=== PATIENT | female | born 1950 | race Caucasian/White ===

== ENCOUNTER 2021-10-12 08:06 | Day surgery (SDC) | payer MEDICARE, OTHER, SELFPAY ==
[2021-10-12 08:30] VITALS: BP 132/78; PULSE 82; RESP 16; TEMP 36.5; O2SAT 98; BMI 26.8
[2021-10-12] MEDS: Lactated Ringers 1,000 ML 15 ML IV (08:30)
--- NOTE | 2021-10-12 09:06 | HP.PCM_ITS ---
HPI - General HPI Narrative QUENTIN GOMEZ, is a 70 F who presents for surveillance colonoscopy. Her last colonoscopy was 5 years ago. She does think that there were polyps present. She does not have any abdominal pain or blood in her stool. [facility] Medical History (Updated 10/12/21 @ 09:[address] Justin Chan MD) Anxiety Back problem Breast lump Cardiology follow-up encounter Depression GERD (gastroesophageal reflux disease) Headache, migraine History of echocardiogram History of stress test Hypertension Non-smoker Osteoporosis Post-menopausal Wears glasses Wears hearing aid Home Medications atenolol 25 mg tablet 25 mg PO DAILY 08/14/21 [History Last Taken 10/12/21 05:10] calcium carbonate 600 mg calcium (1,500 mg) tablet 600 mg PO BID 08/14/21 [History Last Taken Unknown] cholecalciferol (vitamin D3) 50 mcg (2,000 unit) capsule 50 mcg PO DAILY 08/14/21 [History Last Taken Unknown] mirtazapine 30 mg tablet 30 mg PO DAILY 08/14/21 [History Last Taken Unknown] venlafaxine 150 mg capsule,extended release 24 hr 150 mg PO DAILY 08/14/21 [History Last Taken Unknown] Allergy/AdvReac Type Severity Reaction Status Date / Time clindamycin Allergy Intermediate rash Verified 10/11/21 09:42 Family History (Updated 08/14/21 @ 16:38 by Olesya Hogan) Father Anxiety and depression Hypertension Aunt Colon cancer Melanoma Mother Hypertension Daughter Melanoma Other Blood clot in vein Breast cancer Osteoporosis Surgical History (Updated 10/11/21 @ 09:49 by Sara Jerome) History of hernia repair History of tubal ligation Hx of colonoscopy Social History (Updated 08/14/21 @ 16:39 by Olesya Hogan) Smoking Status: Never smoker alcohol intake: never substance use type: does not use what type of physical activity do you participate in: walking, aerobics and weight training frequency: 3-4 times per week Past Medical/Surgical History Planned Operation Planned Operative Procedure/s: COLONOSCOPY Previous Hospitalizations/Surgeries HX Hospitalizations: No Any Problems With Anesthesia: Yes (N&V) You/Your Family Experience Fever (Hyperthermia) With Anes: No Cholinesterase deficiency: No Cardiovascular Hx of Irregular Heartbeat and/or Afib: No Hx Heart Attack: No Hx Congestive Heart Failure: No Hx Hypertension: Yes (CONTROLLED ON MED) Hx Pacemaker: No Respiratory Hx Chronic Obstructive Pulmonary Disease (COPD): No Hx Asthma: No Hx Emphysema: No Hx Sleep Apnea: No Hx Respiratory Tract Infection/Cold (presently): No Do You Snore Loudly (louder than talking or can be heard): Yes Do You Often Feel Tired/ Fatigued/ Sleepy Dring Daytime?: No Has Anyone Observed You Stop Breathing During Sleep?: No Result (for STOP score): Positive Smoking Status: Never smoker Gastrointestinal Hx Gastroesophageal Reflux: No Hx Ulcer: No Neurological Hx Seizures: No Hx Head/Neck Injury: No Hx Headaches: No Hx Back Injury/Pain: Yes Does patient have nerve stimulator: No Miscellaneous Recent Exposure to Contagious Disease: No Allergies clindamycin Allergy (Intermediate, Verified 10/11/21 09:42) rash Discharge Is Pt Admitted From a Halfway, or a Long Term: No After D/C, Where Do you Plan to Go: Return Home Vital Signs Vital Signs Vital Signs: 10/12/21 08:30 Temperature 97.7 F L Temperature Source Temporal Pulse Rate 82 Respiratory Rate 16 Respiratory Pattern Normal Blood Pressure 132/78 H Blood Pressure Mean 96 Blood Pressure Source Monitor Blood Pressure Position Semi-Fowlers Blood Pressure Location Left Arm Pulse Ox 98 Oxygen Delivery Method Room Air Weight Weight: 154 lb Body Mass Index (BMI) 26.8 Physical Exam Const alert and oriented x3 Resp normal respiratory effort and normal air movement Cardio regular rate and regular rhythm GI soft to palpation, non-tender and non-distended Assessment & Plan Assessment/Plan (1) History of colon polyps: PLAN: I explained endoscopy in detail to the patient. I explained the risks including but not limited to stroke or heart attack with anesthesia, perforation of the GI tract, bleeding, infection. I explained that any of these could necessitate further emergency surgery. The patient understands and all questions were answered sufficiently. The patient wishes to proceed with procedure. Justin Chan MD Pager: [facility] [address] [place] [address], [address] [place] [address] Office: Surgery Risks - Colonoscopy Risks Include but are not Limited To: Risks include but are not limited to: Bleeding, perforation requiring further surgery, inability to complete colonoscopy requiring barium enema.
[2021-10-12 09:30] VITALS: BP 109/54; BP 132/78; PULSE 74; RESP 14; TEMP 36.8; O2SAT 98
--- NOTE | 2021-10-12 09:33 | OP.COLON_ITS ---
Patient Name: Krystal Wood Procedure Date: 10/12/2021 9:05 AM Date of : 1950 Age: 70 Procedure: Colonoscopy Indications: High risk colon cancer surveillance: Personal history of colonic polyps Providers: Justin Chan MD Medicines: Monitored Anesthesia Care Patient Profile: This is a 70 year old female. Refer to note in patient chart for documentation of history and physical. Last Colonoscopy: 5 years ago. Complications: No immediate complications. Procedure: Pre-Anesthesia Assessment: - Prior to the procedure, a History and Physical was performed, and patient medications and allergies were reviewed. The patient's tolerance of previous anesthesia was also reviewed. The risks and benefits of the procedure and the sedation options and risks were discussed with the patient. All questions were answered, and informed consent was obtained. Prior Anticoagulants: The patient has taken no previous anticoagulant or antiplatelet agents. After reviewing the risks and benefits, the patient was deemed in satisfactory condition to undergo the procedure. After I obtained informed consent, the scope was passed under direct vision. Throughout the procedure, the patient's blood pressure, pulse, and oxygen saturations were monitored continuously. The colonoscope was introduced through the anus and advanced to the cecum, identified by appendiceal orifice and ileocecal valve. The colonoscopy was performed without difficulty. The patient tolerated the procedure well. The quality of the bowel preparation was good. Scope In: 9:15:32 AM Scope Withdrawal Time 0 hours 6 minutes 40 seconds Scope Out: 9:27:25 AM Total Procedure Duration Time 0 hours 11 minutes 53 seconds Findings: The entire examined colon appeared normal on direct and retroflexion views. Impression: - The entire examined colon is normal on direct and retroflexion views. - No specimens collected. Recommendation: - Discharge patient to home. - Resume previous diet. - Continue present medications. - Repeat colonoscopy is not recommended due to current age (66 years or older) for screening purposes. Procedure Code(s): --- Professional --- G0105, Colorectal cancer screening; colonoscopy on individual at high risk Diagnosis Code(s): --- Professional --- Z86.010, Personal history of colonic polyps CPT copyright 2017 [employer]. All rights reserved. The codes documented in this report are preliminary and upon doggy daycare activities director review may be revised to meet current compliance requirements. Justin Chan MD 10/12/2021 9:32:11 AM This report has been signed electronically. Number of Addenda: 0 Note Initiated On: 10/12/2021 9:05 AM
--- NOTE | 2021-10-12 09:33 | OP.CCLET_ITS ---
10/12/2021 Ashly Weber [facility] [address] [place] [address] Re : Colonoscopy procedure for Krystal Wood Dear Dr. Weber This procedure was performed on Tuesday, October 12, 2021. My impressions and recommendations are as follows: Impressions : - The entire examined colon is normal on direct and retroflexion views. - No specimens collected. Recommendations : - Discharge patient to home. - Resume previous diet. - Continue present medications. - Repeat colonoscopy is not recommended due to current age (66 years or older) for screening purposes. My findings are described in the full procedure note, which is enclosed. If I can be of further assistance, please feel free to contact me at Doctor phone number(s): , Work: . Sincerely, Justin Chan MD 10/12/2021 9:32:11 AM This report has been signed electronically.
[2021-10-12 09:35] VITALS: BP 107/60; BP 132/78; PULSE 73; RESP 16; O2SAT 100
[2021-10-12 09:40] VITALS: BP 106/61; BP 132/78; PULSE 70; RESP 16; O2SAT 100
[2021-10-12 09:45] VITALS: BP 125/72; BP 132/78; PULSE 68; RESP 16; TEMP 37.1; O2SAT 100
[2021-10-12 10:02] VITALS: BP 132/78
== END 2021-10-12 23:59 | disposition home or self-care (01) ==
LOC: EN 08:11 → AC 08:12
PROVIDERS: PCP Internal Medicine; Referring Provider Internal Medicine; Visit Provider Surgery
PROC: 0DJD8ZZ Inspection of Lower Intestinal Tract, Via Natural or Artificial Opening Endoscopic (ICD-10-PCS; CPT 45378; principal; 2021-10-12 09:10)
DX: Z12.11 Encounter for screening for malignant neoplasm of colon (principal); I10 Essential (primary) hypertension; M81.0 Age-related osteoporosis without current pathological fracture; F32.A Depression, unspecified; F41.9 Anxiety disorder, unspecified; Z79.899 Other long term (current) drug therapy; Z86.010 Personal history of colon polyps; Z80.0 Family history of malignant neoplasm of digestive organs
CPT/HCPCS: J7120; J2405

== ENCOUNTER → 2022-08-27 | Outpatient (CLI) | payer MEDICARE, OTHER, SELFPAY ==
[2022-08-27 10:16] LABS: Absolute Lymphocyte Count 2.12 X10^3/uL (0.83-4.51); Absolute Neutrophil Count 3.8 X10^3/uL (2.0-7.7); Basophil# 0.05 X10^3/uL; Basophil% 0.8 % (0-1); Eosinophil# 0.08 X10^3/uL; Eosinophils% 1.2 % (0-5); Hematocrit 39.4 % (37-47); Hemoglobin 12.8 g/dL (12.0-15.0); Lymphocyte # 2.12 X10^3/ul (0.83-4.51); Lymphocyte % 31.9 % (19-41); Mean Corp Hgb Conc 32.5 g/dL (32-36); Mean Corpuscular Volume 92.5 fL (81-99); Mean Platelet Vol. 9.5 fl (6.2-12.0); Monocyte# 0.57 X10^3/uL; Monocyte% 8.6 % (0-10); NRBC Flagged by Analyzer 0 % (0-5); Neutrophil # 3.82 X10^3/uL (2.7-7.7); Neutrophil % 57.3 % (47-70); Platelet Count 274 K/mm3 (150-450); RBC Distribution Width CV 14.2 % (11.6-14.6); RBC Distribution Width SD 48.4 fl (35.1-43.9); Red Blood Count 4.26 M/mm3 (4.2-5.4); White Blood Count 6.7 K/mm3 (4.4-11.0)
[2022-08-27 10:36] LABS: Vitamin D,25 Hydroxy 40.9 ng/mL
[2022-08-27 10:45] LABS: AST(SGOT) 15 U/L (15-37); Alanine Aminotransfer ALT/SGPT 23 U/L (13-56); Albumin, Serum 3.5 g/dL (3.2-5.0); Alkaline Phosphatase 66 U/L (45-117); Anion Gap 5 (5-15); BUN 19 mg/dL (7-18); BUN/Creat Ratio 23.8 RATIO (10-20); Calcium,Total 9.1 mg/dL (8.5-10.1); Chloride 104 mmol/L (98-107); Cholesterol 180 mg/dL (200); EST Glomerular Filtration Rate 75 mL/min (>60); Est Glom Filt Rate - Afr Amer 91 mL/min (>60); Globulin 3.6 g/dL (2.2-4.2); Glucose 103 mg/dL (74-106); High Density Lipoprotein 55 mg/dL; Potassium 4.3 mmol/L (3.5-5.1); Protein, Total 7.1 g/dL (6.4-8.2); Sodium Level 140 mmol/L (136-145); Thyroid Stim Hormone (TSH) 1.46 uIU/mL (0.358-3.74); Triglycerides 80 mg/dL; Very Low Density Lipoprotein 16 mg/dL (5-40)
== END | disposition home or self-care (01) ==
LOC: LAB 09:51
PROVIDERS: PCP Internal Medicine; Referring Provider Internal Medicine; Visit Provider Internal Medicine
DX: M81.0 Age-related osteoporosis without current pathological fracture (principal); K21.9 Gastro-esophageal reflux disease without esophagitis; I10 Essential (primary) hypertension; E55.9 Vitamin D deficiency, unspecified
CPT/HCPCS: 36415; 80053; 80061; 82306; 84443; 85025

== ENCOUNTER 2022-10-04 07:55 | Day surgery (SDC) | payer MEDICARE, OTHER, SELFPAY ==
[2022-10-04] VITALS (7 sets, daily range): BP systolic 105–138; BP diastolic 63–87; PULSE 62–69; RESP 16–18; TEMP 36.3–36.8; O2SAT 94–98; BMI 27.7
[2022-10-04] MEDS: Lactated Ringers 1,000 ML 15 ML IV (08:42)
--- NOTE | 2022-10-04 09:00 | IMM_PTH ---
PATIENT: QUENTIN GOMEZ LOC: EN U#:[id number] AGE/SX: 71/F ROOM: RE10/04/[address]: Dr. Justin Chan MD : 1950 BED: DIS: 10/04/2022 SPEC #: [id number] RECD: 10/04/22 13:51 STATUS: TATO REQ #: [id number] FIDEL: 10/04/22 09:[address]: Justin Chan DEPT: IMMUNOHISTOCHEMISTRY RECD BY: Gabriella Carroll ENTERED: 10/04/22 13:52 SP TYPE: IMMUNO OTHR DR: Dr. Ashly Weber MD Tissues: Stomach, NOS Procedures: H Pylori (initial) PHYSICIAN & INSTITUTION [place] [address] SPECIMEN INFORMATION: Tissue Source: Antrum biopsy Clinical Info: GERD Specimen Number: [id number] CPT code: 20864 METHODOLOGY: Deparaffinized sections of prefer/formalin-fixed tissue or PAP/DQ stained slides are incubated with monoclonal/polyclonal antibodies/oligonucleotide probes. Localization is made via biotin free immunoperoxidase method. Appropriate controls are performed and reacted as expected. Results on target cell population are indicated in the following table: RESULTS: ANTIBODY / CLONE RESULT H Pylori (polyclonal) negative These tests were developed and their performance characteristics determined by [facility]. They may not have been cleared or approved by the U.S. Food and Drug Administration. The FDA has determined that such clearance or approval is not necessary. The above immunohistochemical/dualISH markers are ordered and reviewed by the Pathologist. INTERPRETATION: Antrum, biopsy: Negative for Helicobacter pylori organisms. SJ:juvencio 10/07/2022
--- NOTE | 2022-10-04 09:00 | EGD_PTH ---
PATIENT: QUENTIN GOMEZ LOC: EN U#:[id number] AGE/SX: 71/F ROOM: RE10/04/[address]: Dr. Justin Chan MD : 1950 BED: DIS: 10/04/2022 SPEC #: [id number] RECD: 10/04/22 11:48 STATUS: TATO REPaige #: [id number] FIDEL: 10/04/22 09:[address]: Justin Chan DEPT: SURGICAL PATHOLOGY RECD BY: Arin Hand ENTERED: 10/04/22 13:03 SP TYPE: EGD BIOPSY OTHR DR: Dr. Ashly Weber MD Tissues: Gastric mucous membrane Procedures: Surgery Specimen Level IV HEADER OPERATION: EGD ([facility]), PH probe PRE-OP DIAGNOSIS: GERD TISSUE SUBMITTED: Antrum for H. pylori and path MICROSCOPIC DIAGNOSIS Antrum, biopsy: Mild gastritis. See microscopic description and comment. SJ:juvencio 10/07/2022 COMMENT The results of immunohistochemistry for Helicobacter pylori will be reported separately ([id number]). MICROSCOPIC DESCRIPTION Slides are reviewed. The specimen shows fragments of gastric mucosa with chronic inflammatory cell infiltrates in the lamina propria consisting of lymphocytes and plasma cells, consistent with mild chronic gastritis. GROSS DESCRIPTION Received in fixative is one container labeled with the patient's name and designated antrum biopsy. The specimen consists of two irregular fragments of light rhodes soft tissue that in aggregate measure 0.5 x 0.4 x 0.1 cm. The specimen is totally submitted in one cassette. / LO:juvencio 10/04/2022 TC:3 CPT: 80694
--- NOTE | 2022-10-04 09:10 | PCM.HP.BLA ---
History and Physical Date of Admission: 10/04/22 Intake Vital Signs ? 10/12/2207:30 09/09/2214:54 Height 5 ft 3.5 in 5 ft 3 in Weight: ? 158 lb BMI ? 28.0 BP ? 121/82 H Blood Pressure Location ? Rt brachial Position ? Sitting Respiration ? 18 Intake Visit Reasons:?FULL FEELING DURING NIGHT Chief Complaint: feeling full at bedtime Natural Resources Faculty Member Required: No Is patient in pain?: No Allergies clindamycin Allergy (Intermediate, Verified 09/09/22 14:48) rash Medications calcium carbonate 600 mg calcium (1,500 mg) tablet (Calcium) 600 mg PO BID 08/14/21 [History Confirmed 09/09/22] cholecalciferol (vitamin D3) 50 mcg (2,000 unit) capsule 50 mcg PO DAILY 08/14/21 [History Confirmed 09/09/22] venlafaxine 150 mg capsule,extended release 24 hr (Effexor XR) 150 mg PO DAILY 08/14/21 [History Confirmed 09/09/22] atenolol 25 mg tablet 25 mg PO DAILY #90 tabs 05/13/22 [Rx Confirmed 09/09/22] wheat dextrin 5 gram/7.4 gram oral powder (Benefiber Healthy Shape) g PO DAILY 09/02/22 [History Confirmed 09/09/22] famotidine 40 mg tablet 40 mg PO DAILY #30 tabs 09/09/22 [Rx Confirmed 09/09/22] PFSH Medical History? Anxiety Back problem Breast lump Cardiology follow-up encounter Depression GERD (gastroesophageal reflux disease) Headache, migraine History of echocardiogram History of stress test Hypertension Non-smoker Osteoporosis Post-menopausal Wears glasses Wears hearing aid Surgical History? History of hernia repair History of tubal ligation Hx of colonoscopy Family History? Father Anxiety and depression HypertensionAunt Colon cancer MelanomaMother HypertensionDaughter MelanomaOther Blood clot in vein Breast cancer Osteoporosis Social History? Smoking Status:? Never smoker alcohol intake:? never substance use type:? does not use what type of physical activity do you participate in:? walking, aerobics and weight training frequency:? 3-4 times per week HPI HPI HPI: Patient is a 71-year-old female who reports she feels full at night.? She says this was happening more at the beginning of the summer and has gotten a little bit better since then.? She reports that she does not eat anything for the 3 hours before bedtime and that she feels like she wakes up with food contents in her mouth.? She says the fullness is in her upper abdomen. ROS General General: No weight change, appetite, fatigue, colon cancer, breast cancer or weakness HEENT HEENT: No difficulty swallowing, eye injury, eye surgery, swollen glands or hoarseness Endo Endocrine: No thyroid disease, diabetes mellitus, thyroid cancer, Hair loss, heat intolerance or cold intolerance Skin Skin: No rash or changing moles Breast Breast: No left breast lump, right breast lump, nipple discharge, breast pain, abnormal mammogram, abnormal US or breast enlargement Musc Musculoskeletal: No back problems, arthritis, rheumatoid arthritis, gout or joint pain Cardio Cardiovascular: No murmur, pacemaker, heart disease, atrial fibrillation, high blood pressure, heart attack, heart stent, palpitations, shortness of breat with exertion or chest pain Psych Psychiatric: Yes depression and anxiety; No hearing voices Resp Respiratory: No shortness of breath, No sleep apnea, No cough, No COPD, No asthma, No emphysema and No wheezing Gastro Gastrointestinal: No abdominal pain, Yes nausea or vomiting, No diarrhea, No constipation, No blood in stool, Yes acid reflux, Yes hemorrhoids, No ulcers, No gallbladder problem and No black,tarry stools Tristin Hematologic: No blood thinners, No blood disorders, No bleeding, No anemia and No blood clots Neuro Neurologic: No system reviewed and no additional complaints, except as documented, No as per HPI, No abnormal gait, No abnormal hearing, No abnormal movements, No abnormal speech, No behavioral changes, No burning sensations, No confusion, No convulsions, No disequilibrium, No dizziness, No localized weakness, No frequent falls, No headache(s), No lack of coordination, No loss of vision, No memory loss, No numbness, No other visual disturbances, No radicular pain, No restless legs, No sensory deficit, No syncope, No tingling, No tremor(s), No weakness and No other Exam Const General: cooperative Orientation: alert and oriented x3 HENMT Head: normal to inspection Neck Neck: normal visual inspection and full ROM Chest Chest palpation & inspection: normal inspection of the chest Resp Effort & Inspection: normal respiratory effort Auscultation: clear to auscultation bilaterally Cardio Rate: regular rate Rhythm: regular rhythm GI Inspection: non-distended Palpation: soft and nontender Skin General: no rashes or lesions noted Neuro General: patient alert and patient oriented x3 Extrem General: full ROM Psych Appearance: grossly normal Mental Status: mental status grossly normal Assessment and Plan Assessment and Plan (1) GERD (gastroesophageal reflux disease): ?Status:?Acute ?Qualifiers: ?Esophagitis presence:?esophagitis presence not specified? Qualified Code(s):?K21.9 - Gastro-esophageal reflux disease without esophagitis ?Plan: Patient was sent here for evaluation for her GERD and possible hiatal hernia.? I discussed EGD with her in detail and recommended having a pH probe placed in case she would like to proceed with fundoplication in the future.? Patient does express some interest in surgery so we will proceed with EGD and pH probe. I explained endoscopy in detail to the patient.? I explained the risks including but not limited to stroke or heart attack with anesthesia, perforation of the GI tract, bleeding, infection.? I explained that any of these could necessitate further emergency surgery.? The patient understands and all questions were answered sufficiently.? The patient wishes to proceed with procedure. Justin Chan MD Pager: [facility] [address] [place] [address], [address] [place] [address] Office: I have examined the patient and the H&P has been reviewed. There are no clinical changes since date of exam.
--- NOTE | 2022-10-04 10:10 | OP.EGD_ITS ---
Patient Name: Krystal Wood Procedure Date: 10/04/2022 9:19 AM Date of : 1950 Age: 71 Procedure: Upper GI endoscopy Indications: Epigastric abdominal pain, Heartburn Providers: Justin Chan MD Medicines: Monitored Anesthesia Care Patient Profile: This is a 71 year old female. Refer to note in patient chart for documentation of history and physical. Complications: No immediate complications. Procedure: Pre-Anesthesia Assessment: - Prior to the procedure, a History and Physical was performed, and patient medications and allergies were reviewed. The patient's tolerance of previous anesthesia was also reviewed. The risks and benefits of the procedure and the sedation options and risks were discussed with the patient. All questions were answered, and informed consent was obtained. Prior Anticoagulants: The patient has taken no previous anticoagulant or antiplatelet agents. After reviewing the risks and benefits, the patient was deemed in satisfactory condition to undergo the procedure. After obtaining informed consent, the endoscope was passed under direct vision. Throughout the procedure, the patient's blood pressure, pulse, and oxygen saturations were monitored continuously. The gastroscope was introduced through the mouth, and advanced to the third part of duodenum. The upper GI endoscopy was accomplished without difficulty. The patient tolerated the procedure well. Scope In: 9:41:34 AM Scope Out: 9:49:01 AM Total Procedure Duration Time 0 hours 7 minutes 27 seconds Findings: The esophagus was normal. The stomach was normal. The examined duodenum was normal. The BETANCUR capsule with delivery system was introduced through the mouth and advanced into the esophagus, such that the BETANCUR pH capsule was positioned 31 cm from the incisors, which was 6 cm proximal to the GE junction. Suction was applied to the well of the BETANCUR pH capsule to suck in the adjacent mucosa of the esophagus using the external vacuum pump set at a minimum vacuum pressure of 550 mmHg for 30 seconds. The BETANCUR pH capsule was then deployed by depressing the plunger on top of the handle to advance the locking pin into the mucosa, thereby attaching the capsule to the esophagus. The plunger was then rotated a quarter turn clockwise to release the capsule from the delivery system. The delivery system was then withdrawn. Endoscopy was utilized for probe placement and diagnostic evaluation. Biopsies were taken with a cold forceps in the gastric antrum for Helicobacter pylori testing. Impression: - Normal esophagus. - Normal stomach. - Normal examined duodenum. - The BETANCUR pH capsule was positioned 31 cm from the incisors, which was 6 cm proximal to the GE junction. - Biopsies were taken with a cold forceps for Helicobacter pylori testing. Recommendation: - Discharge patient to home. - Resume previous diet. - Continue present medications. - Await pathology results. Procedure Code(s): --- Professional --- 86970, Esophagogastroduodenoscopy, flexible, transoral; with biopsy, single or multiple Diagnosis Code(s): --- Professional --- R10.13, Epigastric pain R12, Heartburn CPT copyright 2017 [employer]. All rights reserved. The codes documented in this report are preliminary and upon marine engine mechanic review may be revised to meet current compliance requirements. Justin Chan MD 10/04/2022 10:10:07 AM This report has been signed electronically. Number of Addenda: 0 Note Initiated On: 10/04/2022 9:19 AM
--- NOTE | 2022-10-04 10:11 | OP.CCLET_ITS ---
10/04/2022 Ashly Weber [facility] [address] [place] [address] Re : Upper GI endoscopy procedure for Krystal Wood Dear Dr. Weber This procedure was performed on Tuesday, October 04, 2022. My impressions and recommendations are as follows: Impressions : - Normal esophagus. - Normal stomach. - Normal examined duodenum. - The BETANCUR pH capsule was positioned 31 cm from the incisors, which was 6 cm proximal to the GE junction. - Biopsies were taken with a cold forceps for Helicobacter pylori testing. Recommendations : - Discharge patient to home. - Resume previous diet. - Continue present medications. - Await pathology results. My findings are described in the full procedure note, which is enclosed. If I can be of further assistance, please feel free to contact me at Doctor phone number(s): , Work: . Sincerely, Justin Chan MD 10/04/2022 10:10:07 AM This report has been signed electronically.
== END 2022-10-04 11:00 | disposition home or self-care (01) ==
LOC: EN 07:56 → AC 07:58
PROVIDERS: PCP Internal Medicine; Referring Provider Internal Medicine; Visit Provider Surgery
PROC: 0DJ08ZZ Inspection of Upper Intestinal Tract, Via Natural or Artificial Opening Endoscopic (ICD-10-PCS; CPT 43235; principal; 2022-10-04 08:55)
DX: K29.50 Unspecified chronic gastritis without bleeding (principal); K21.9 Gastro-esophageal reflux disease without esophagitis; I10 Essential (primary) hypertension; E55.9 Vitamin D deficiency, unspecified; F32.A Depression, unspecified; Z79.899 Other long term (current) drug therapy
CPT/HCPCS: 43239; 88305; 88342; J7120; J2405

== ENCOUNTER → 2024-10-06 | Outpatient (CLI) | payer MEDICARE, OTHER, SELFPAY ==
--- NOTE | 2024-10-06 14:00 | NEURO ---
NCS and/or EMG Patient Report Ordering Doctor: Ashly Weber DATE OF SERVICE: 10/06/24 Krystal presents with complaints of numbness and tingling in the left hand. Electrodiagnostic findings: Left median motor nerve demonstrates prolonged distal latency with normal amplitude and conduction velocity. Normal ulnar motor response. Normal left median and ulnar F?waves. Prolonged left median sensory latency at the wrist. Needle EMG testing was performed the left upper limb. All muscles tested showed no evidence of denervation with normal motor unit action potentials Electrodiagnostic impression: This is an abnormal study. 1. Electrodiagnostic findings suggestive of left-sided median mononeuropathy. This is consistent with a mild left carpal tunnel syndrome. Multi Select Codes Neurology Neurology Interp Codes: 95152-36 Musc test done w/n test comp (interp) and 51286-77 Nrv cndj tst 5-6 studies (interp)
== END | disposition home or self-care (01) ==
LOC: PSN 11:59
PROVIDERS: PCP Internal Medicine; Referring Provider Internal Medicine; Visit Provider Internal Medicine
DX: G56.02 Carpal tunnel syndrome, left upper limb (principal)
CPT/HCPCS: 95886; 95909

== ENCOUNTER 2024-12-03 06:15 | Day surgery (SDC) | payer MEDICARE, OTHER, SELFPAY ==
[2024-12-03] VITALS (9 sets, daily range): BP systolic 139–152; BP diastolic 72–88; PULSE 58–66; RESP 16; TEMP 36.1–36.4; O2SAT 95–100; BMI 29.5
--- NOTE | 2024-12-03 07:09 | PCM.HP.STD ---
HPI - General HPI Narrative KRYSTAL GMOEZ, is a 74 F who presents for left endoscopic carpal tunnel release. No changes to history and physical exam. Left wrist marked. Postoperative instructions risks alternatives benefits discussed the patient understands wished to proceed no further questions or concerns. MR#: [id number] Acct: [id number] Name: KRYSTAL GOMEZ Rep #: [id number] : 1950 Provider: Dr. Jona Beal MD Age/Sex: 73/F Location: [facility] [place] Status: Signed Intake Vital Signs 09/30/2509:55 10/18/2512:04 Height 5 ft 3 in 5 ft 3 in Weight: 169 lb 165 lb BMI 29.9 29.2 BP 129/81 H Blood Pressure Location Rt brachial Position Sitting Respiration 16 Pulse 69 Pulse Source Monitor Temp 98.6 F Temp Source Temporal Pulse Oximetry (%) 97 Oxygen Delivery Method room air Intake Visit Reasons: LEFT HAND Accompanied by: Self Is patient in pain?: Yes Pain scale (1-10): 1 Allergies clindamycin Allergy (Intermediate, Verified 10/18/24 13:04) rash Medications ?Medication ?Instructions ?Recorded ?Confirmed ?Type atenolol 25 mg tablet 25 mg PO DAILY #90 tabs 05/19/24 10/18/24 Rx cholecalciferol (vitamin D3) 10 10 mcg PO QDAY 08/25/24 10/18/24 History mcg (400 unit) capsule loratadine 10 mg tablet (Claritin) 10 mg PO QDAY 08/25/24 10/18/24 History venlafaxine 150 mg 75 mg PO DAILY 08/25/24 10/18/24 History capsule,extended release 24 hr (Effexor XR) Have you fallen in the past year?: No PFSH Medical History (Updated 09/30/24 @ 12:[address] Ashly Weber MD) Carpal tunnel syndrome, left Wears hearing aid Wears glasses Post-menopausal Non-smoker History of echocardiogram Cardiology follow-up encounter History of stress test Depression Hypertension GERD (gastroesophageal reflux disease) Osteoporosis Headache, migraine Breast lump Anxiety Back problem Surgical History Hx of colonoscopy Hx of colonoscopy History of hernia repair History of tubal ligation Family History Father Anxiety and depression HypertensionAunt Colon cancer MelanomaMother HypertensionDaughter MelanomaOther Blood clot in vein Breast cancer Osteoporosis Social History Smoking Status: Never smoker alcohol intake: never substance use type: does not use what type of physical activity do you participate in: walking, aerobics and weight training frequency: 3-4 times per week HPI LEFT HAND Details: This documentation accurately reflects the service provided and the decisions made by me, Dr. Jona Beal MD 10/18/24 1136. Part of today?s visit was documented by [ ], acting as scribe. KRYSTAL GOMEZ is a 73 year old F here today for L CTS. couple years, recently worse over a couple months. lasts 10-15 minutes. works it out. worse with tight gripping. has NCS left side. worse with holding the phone or driving. all fingers except the 5th digit go numb. RHD. 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 tx - tried night splinting helps a little bit at night only. Supplemental Info [facility] [address] [place] [address] MR#: [id number] Acct: [id number] Name: KRYSTAL GOMEZ Rep #: [id number] : 1950 73 From: Mirna Nicholas MD Referring Dr: Ashly Weber MD Status: REG CLI Location: PSN Date: 10/06/24 Sex: F C NCS and/or EMG Patient Report Ordering Doctor: Ashly Weber DATE OF SERVICE: 10/06/24 Krystal presents with complaints of numbness and tingling in the left hand. Electrodiagnostic findings: Left median motor nerve demonstrates prolonged distal latency with normal amplitude and conduction velocity. Normal ulnar motor response. Normal left median and ulnar F?waves. Prolonged left median sensory latency at the wrist. Needle EMG testing was performed the left upper limb. All muscles tested showed no evidence of denervation with normal motor unit action potentials Electrodiagnostic impression: This is an abnormal study. 1. Electrodiagnostic findings suggestive of left-sided median mononeuropathy. This is consistent with a mild left carpal tunnel syndrome. Multi Select Codes Neurology Neurology Interp Codes: 94253-51 Musc test done w/n test comp (interp) and 12239-23 Nrv cndj tst 5-6 studies (interp) Coding Level of Care Code Off vis,new,level 3 Diagnoses Carpal tunnel syndrome, left G56.02 Assessment and Plan Assessment and Plan (1) Carpal tunnel syndrome, left: Status: Acute Plan: 73-year-old female with left carpal tunnel syndrome. Discussed the diagnosis prognosis different treatment options. Patient would like to go ahead with left endoscopic carpal tunnel release. Signed the consent form for that. No further questions or concerns. Risks of endoscopic possibly higher rate of incomplete release but quicker return to function generally and less pain. Pros and cons risks and benefits were discussed with the patient including but not limited to infection, pain, stiffness, bleeding, damage to surrounding structures, neurovascular injury, recurrence or retear, failure or wear of hardware or fixation, instability, fracture, deep vein thrombosis and pulmonary embolism, anesthetic risks, , patient dissatisfaction, need for further surgery and other risks. Patient understood and wished to proceed with surgery, and signed the informed consent documentation. Carpal Tunnel Syndrome (CTS) occurs when the median nerve, which runs through the wrist, becomes compressed. Treatment options vary based on the severity of the condition: Non-Surgical Treatments: Wrist Splinting: Wearing a splint at night to keep the wrist in a neutral position. Activity Modification: Avoiding repetitive wrist movements or adjusting work habits. Physical Therapy: Exercises to improve wrist and hand function. Medications: Anti-inflammatory drugs (NSAIDs) or corticosteroid injections to reduce swelling and pain. Surgical Treatment: Carpal Tunnel Release Surgery: A procedure where the ligament pressing on the median nerve is cut to relieve pressure. This is considered when non-surgical treatments are ineffective. Options are min-open or endoscopic. Clinical Quality Measures Falls Risk Screening/Assistive Devices Have you fallen in the past year?: No Ortho Exam General General: Yes no acute distress Neurologic: Yes alert and Yes oriented x3 Psychologic: Yes reasonable and appropriate Right Wrist/Hand Skin/Wound: No Swelling and No Ecchymosis Left Wrist/Hand Skin/Wound: Yes CDI, No Swelling, No Ecchymosis, Yes nail intact, Yes capillary refill normal and No erythema Left Wrist: Yes ROM-Extension 0-60, Yes ROM-Flexion 0-80, Yes ROM-Pronation 0-80, Yes ROM-Supination 0-90, Yes Durken's Test, Yes Tinel's (neg at elbow, pos wrist), Yes Phalen's and Yes Thenar Atrophy; No Hypothenar Atrophy Motor: EPL: 5, FDP-2: 5, 1st Dorsal Interosseous: 5 and APB: 5 Sensation: Radial: I, Ulnar: I and Median: D [facility] Medical History History of tinnitus Gastric reflux PONV (postoperative nausea and vomiting) Leg cramps Carpal tunnel syndrome, left Wears glasses Post-menopausal Non-smoker History of echocardiogram Cardiology follow-up encounter History of stress test Depression Hypertension GERD (gastroesophageal reflux disease) Osteoporosis Breast lump Anxiety Back problem Home Medications ?Medication ?Instructions ?Recorded ?Last Taken ?Type atenolol 25 mg tablet 25 mg PO DAILY #90 tabs 05/19/24 12/03/24 Rx loratadine 10 mg tablet (Claritin) 10 mg PO QDAY 08/25/24 12/02/24 History venlafaxine 150 mg 75 mg PO DAILY 08/25/24 12/02/24 History capsule,extended release 24 hr (Effexor XR) aluminum hydrox-magnesium carb 95 15 ml PO BID PRN dyspepsia 11/19/24 Unknown History mg-358 mg/15 mL oral suspension (Gaviscon) cholecalciferol (vitamin D3) 50 50 mcg PO DAILY 11/19/24 12/02/24 History mcg (2,000 unit) capsule (Vitamin D3) Allergy/AdvReac Type Severity Reaction Status Date / Time clindamycin Allergy Intermediate rash Verified 12/03/24 06:37 Family History Father Anxiety and depression Hypertension Aunt Colon cancer Melanoma Mother Hypertension Daughter Melanoma Other Blood clot in vein Breast cancer Osteoporosis Surgical History Hx of colonoscopy Hx of colonoscopy History of hernia repair History of tubal ligation Social History Smoking Status: Never smoker alcohol intake: never substance use type: does not use what type of physical activity do you participate in: walking, aerobics and weight training frequency: 3-4 times per week Vital Signs Vital Signs Vital Signs: 12/03/24 06:38 12/03/24 06:38 Temperature 97.3 F L Temperature Source Temporal Pulse Rate 66 Respiratory Rate 16 Respiratory Pattern Normal Blood Pressure 139/80 H Blood Pressure Mean 99 Blood Pressure Source Monitor Blood Pressure Position Semi-Fowlers Blood Pressure Location Left Arm Pulse Ox 95 Oxygen Delivery Method Room Air Weight Weight: 166 lb 14.239 oz Body Mass Index (BMI) 29.5
--- NOTE | 2024-12-03 07:22 | PCM.PRE.AN2 ---
ASA Classification* ASA Classification ASA Classification: 2 Assessment & Plan Anesthesia* Anesthesia Assessment Anesthesia Assessment: Discussed sedation and/or anesthesia options, risks, benefits, and alternatives with patient/parents/legal guardian/POA. Questions invited. The patient/parents/legal guardian/POA seems to understand and agrees to proceed with anesthesia plan. Reviewed the physical assessment, medical history, allergy history and patient home medications list prior to surgery/procedure/anesthetic and documented any changes. Performed airway and anesthesia risk assessments. Anesthesia Type Anesthesia Type: MAC Anesthesia Focused Assessment* Temperature: 97.3 F Pulse Rate: 66 Blood Pressure: 139/80 Respiratory Rate: 16 Pulse Ox: 95 Airway Assessment Mouth opens: >3 cm Mallampati Score: II Focused Labs Anesthesia Preop lab: CBC WBC 6.7 K/mm3 (4.4-11.0) 08/27/22 09:53 08/27/22 RBC 4.26 M/mm3 (4.2-5.4) 08/27/22 09:53 08/27/22 Hgb 12.8 g/dL (12.0-15.0) 08/27/22 09:53 08/27/22 Hct 39.4 % (37-47) 08/27/22 09:53 08/27/22 Plt Count 274 K/mm3 (150-450) 08/27/22 09:53 08/27/22 CHEMISTRY Potassium 4.3 mmol/L (3.5-5.1) 08/27/22 09:53 08/27/22 Sodium 140 mmol/L (136-145) 08/27/22 09:53 08/27/22 BUN 19 mg/dL (7-18) H 08/27/22 09:53 08/27/22 Creatinine 0.80 mg/dL (0.55-1.02) 08/27/22 09:53 08/27/22 Glucose 103 mg/dL (74-106) 08/27/22 09:53 08/27/22 TSH 1.46 uIU/mL (0.358-3.74) 08/27/22 09:53 08/27/22 COAG Pre-Assessment Diagnosis/Proposed Procedure Planned Operative Procedure(s): Left Endoscopic Carpal Tunnel Release Anesthesia History 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 When Was Last Pacemaker Check QUESTION #4 FULL TEXT: You/Your Family Experience fever (hyperthermia) with Anesthesia Last Oral Intake Last Oral intake: Last Oral Intake NPO since 18:30 12/03/24 06:38 Meds taken in AM with sips of Yes 12/03/24 06:38 water? 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 Female Yes 11/19/24 09:18 HX of Motion Sickness Yes 11/19/24 09:18 HX of N/V After Surgery Yes 11/19/24 09:18 Non-Smoker Yes 11/19/24 09:18 Duration of Surgery greater No 11/19/24 09:18 than 60 minutes Number of Risk Factors 4 11/19/24 09:18 PONV Score Severe Risk 11/19/24 09:18 Height & Weight Height & Weight: Anesthesia: Height & Weight Height 5 ft 3 in 12/03/24 06:38 Weight: 75.7 kg 12/03/24 06:38 Body Mass Index (BMI) 29.5 12/03/24 06:38 Respiratory Assessment Respiratory Assessment - diesel engine pipe fitter: Respiratory Tract Infection Hx - diesel engine pipe fitter Hx Respiratory Tract Infection No 11/19/24 09:18 STOP Sleep Apnea STOP Sleep Apnea - diesel engine pipe fitter: STOP Sleep Apnea - diesel engine pipe fitter Hx Hypertension Yes: per pt, CONTROLLED ON 11/19/24 09:18 MED Hx Sleep Apnea No 11/19/24 09:18 CPAP BIPAP Do you snore loudly (louder Yes 11/19/24 09:18 than talking or can be heard Do you often feel tired/ No 11/19/24 09:18 fatigued/ sleepy during daytime? Has anyone observed you stop No 11/19/24 09:18 breathing during sleep? STOP Results Positive 11/19/24 09:18 QUESTION #5 FULL TEXT : Do you snore loudly (louder than talking or can be heard through closed doors)? 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 Specify any problems Hx of Preganancy in last 3 No 11/19/24 09:18 Months Nurse Filling Out Transfusion MGRIFFITH 11/19/24 09:18 & Questions: Date: 11/19/24 11/19/24 09:18 Time: 09:20 11/19/24 09:18 Patient unable to answer at this time (ie. confused, unrespo /Reproduction History /Reproductive History - diesel engine pipe fitter: /Reproductive Hx- diesel engine pipe fitter Hx Now No 11/19/24 09:18 Gestational Age (in weeks): EDC: Hx Hx Para Hx Section SAB No 11/19/24 09:18 Active Medications Active Medications: Current Medications Generic Name Dose Route Start Last Admin Trade Name Freq PRN Reason Stop Dose Admin Cefazolin Sodium 2 gm/ N/A 20 mls @ 400 mls/hr 12/03/24 09:00 IV 12/03/24 09:02 PREOP [facility] Medical History History of tinnitus Gastric reflux PONV (postoperative nausea and vomiting) Leg cramps Carpal tunnel syndrome, left Wears glasses Post-menopausal Non-smoker History of echocardiogram Cardiology follow-up encounter History of stress test Depression Hypertension GERD (gastroesophageal reflux disease) Osteoporosis Breast lump Anxiety Back problem Home Medications ?Medication ?Instructions ?Recorded ?Last Taken ?Type atenolol 25 mg tablet 25 mg PO DAILY #90 tabs 05/19/24 12/03/24 Rx loratadine 10 mg tablet (Claritin) 10 mg PO QDAY 08/25/24 12/02/24 History venlafaxine 150 mg 75 mg PO DAILY 08/25/24 12/02/24 History capsule,extended release 24 hr (Effexor XR) aluminum hydrox-magnesium carb 95 15 ml PO BID PRN dyspepsia 11/19/24 Unknown History mg-358 mg/15 mL oral suspension (Gaviscon) cholecalciferol (vitamin D3) 50 50 mcg PO DAILY 11/19/24 12/02/24 History mcg (2,000 unit) capsule (Vitamin D3) Allergy/AdvReac Type Severity Reaction Status Date / Time clindamycin Allergy Intermediate rash Verified 12/03/24 06:37 Family History Father Anxiety and depression Hypertension Aunt Colon cancer Melanoma Mother Hypertension Daughter Melanoma Other Blood clot in vein Breast cancer Osteoporosis Surgical History Hx of colonoscopy Hx of colonoscopy History of hernia repair History of tubal ligation Social History Smoking Status: Never smoker alcohol intake: never substance use type: does not use what type of physical activity do you participate in: walking, aerobics and weight training frequency: 3-4 times per week Review of Systems (Anesthesia) ROS Narrative System reviewed and no additional complaints, except as documented.
[2024-12-03] MEDS: Cefazolin 2 GM in Syringe IV (08:40)
[2024-12-03] MEDS: Bupivacaine 0.25% 30 ML Vial (09:05)
--- NOTE | 2024-12-03 09:12 | PCM.OPRPT ---
Problems Associated Problem List Diagnoses (1) Carpal tunnel syndrome, left: Procedures Musculoskeletal 20xxx-29xxx: Other Procedure See Report Operative Report (Standard) Operative Information Date of Procedure: 12/03/24 Pre-Operative Diagnosis: L carpal tunnel syndrome Post-Operative Diagnosis: same Surgery/Procedure Performed: L endoscopic carpal tunnel release decay control operator: No Type of Anesthesia: General and Local RN Documented Start/Stop Times: Operation Date: 12/03/24 09:00 Case Time Into Pre-Op 12/03/24 06:22 Out of Pre-Op 12/03/24 08:38 Anesthesia Start 12/03/24 08:40 Into Room 12/03/24 08:40 Procedure Start 12/03/24 08:58 Procedure End 12/03/24 09:10 Procedure Start Time: 08:58 Procedure Stop Time: 09:10 Select all DRAINS/GRAFTS/IMPLANTS that apply: None Estimated Blood Loss: 10 Specimen collected: No Description of surgery: Patient brought to the operating room theater. Placed upon on the table. 2g iv ancef before the start of the case. GA induced by the anesthetic team. Patient placed supine on the table all bony prominences padded. SCDs on the legs. Hand table used both sides. Tourniquet applied properly padded to left upper extremity. Upper extremity prepped and draped in the usual sterile fashion with chlorhexidine-based prep solution allowing over 3 minutes drying time prior to draping. Preoperative timeout performed to confirm the site patient and the surgery. Began by elevating the limb and inflated the tourniquet to 250 mmHg. I used the [employer] [place] endoscopic carpal tunnel kit. I made a transverse 2 cm incision in line with the? transverse wrist crease.? This was in line with the fourth digit.? I carried the dissection down through skin and subcutaneous tissue achieved meticulous hemostasis. Just ulnar to palmaris tendon.? I incised the antebrachial fascia.? I passed sequential dilators into the carpal tunnel along the radial border of the Guyon's canal aiming for the fourth digit with the hand in extension.? I used a synovial elevator to identify the transverse fibers of the transverse carpal tunnel ligament.? Passed the scope into the carpal tunnel. Once I had identified the full proximal and distal extent of the ligament I fully released the ligament under direct visualization by deploying the blade and slowly withdrawing the scope made sequential passes until I no longer felt tension as well as the entire extent of the ligament was released under direct visualization.? Sounded the tunnel with kapadia tenotomy scissors, complete release, no bands. Arthroscope light was more visible through the skin. Release the forearm fascia also. Pictures taken and saved. Wounds thoroughly irrigated.? 3cc 0.25% bupivicaine for local anesthesia. Tourniquet let down prior to end of the case and meticulous hemostasis achieved.? Thorough irrigation.? ? Incisions closed with 3-0 vicryl and dermabond and 3-0 moncryl for skin. ?Then adaptic 4x4 gauze and chris wrap loosely wrapped. Patient woken up,? transferred off the operating room table and taken to postanesthetic care unit in stable condition. All sponge needle instrument counts were correct no complications.?Plan for the patient to be discharged home according to day surgery criteria when they are comfortable. Follow-up in the office in 2 days time. Gentle ROM hand and elbow no heavy lifting. cpt [id number] Surgical Findings: as above Complications Complications: No Admit VTE Documentation VTE Present on Admission: Yes VTE Mechan Device Prophylaxis: SCD's VTE Pharm Prophylaxis ordered?: No Reason prophylaxis not ordered: Treatment Not Indicated
--- NOTE | 2024-12-03 09:16 | DCINST_ITS ---
Discharge Instructions Diet Discharge Diet: No restrictions Activity Ice area for (Minutes): 10 Lifting Restrictions: no heavy or repetitive gripping, lifting, or wrist ROM Keep extremity elevated above heart level: Operative Extremity Additional Activity Instructions:: please wear wrist brace for 2 weeks Dressing / Incision Call your doctor if your incision/area has: Continuous Slow Oozing, Sudden Increased Bleeding, Increased Pain/ Swelling, Increased Redness, Foul Smelling Discharge and Swelling at the incision site Call your doctor if you observe: Fever of 101 or Higher, Coldness, Increased Pain and Numbness or Tingling Remove Dressing in: leave in place till F/U Cleanse incision/area with: Do not get Incision Wet Follow Up Care Please Follow Up With: Jona Beal MD When: within 2 weeks Test Results: Test results from this visit will be discussed in further detail at your follow- up appointment, if applicable. Discharge Plan Admission Attending Provider: Jona Beal Primary Care Provider: Ashly Weber Instructions Patient Instructions: Carpal Tunnel Release Surgery Print Language: Kinyarwanda Discharge Orders/Prescriptions Prescriptions: No Action venlafaxine [Effexor XR] 150 mg capsule,extended release 24hr 75 mg PO DAILY loratadine [Claritin] 10 mg tablet 10 mg PO QDAY cholecalciferol (vitamin D3) [Vitamin D3] 50 mcg (2,000 unit) capsule 50 mcg PO DAILY Gaviscon 95-358 mg/15 mL suspension 15 ml PO BID PRN (Reason: dyspepsia) atenolol 25 mg tablet 25 mg PO DAILY Qty: 90 3RF Referrals / Follow Up: Ashly Weber MD [Primary Care Provider] - Jona Beal MD [Med Staff - Active Staff] - Disposition Disposition (needs filled in before D/C Order can be placed): Home, Self Care
--- NOTE | 2024-12-03 09:21 | PCM.POST.ANE ---
Anesthesia: Postop Eval I Current Vital Signs Temperature: 97 F Pulse Rate: 62 Blood Pressure: 147/81 Respiratory Rate: 16 Pulse Ox: 97 Assessment Airway patent: Yes Spontaneous unlabored respirations: Yes nausea: No Vomiting: No Anesthesia Complication: No Fluid Hydration Crystalloid volume administer (ml): 500 Total IV fluid infused: 500 Progress Note Anesthesia document: Postop Eval 1 completed: Yes
--- NOTE | 2024-12-03 09:36 | POSTOPAN2_ITS ---
Anesthesia Postop Eval I Sum Postop Eval Completion status Anesthesia document: Postop Eval 1 completed: Yes Anesthesia Postop Eval I Summary Anesthesia Postop Eval I Summary: Anesthesia Postop Eval I: Assessment Summary Airway patent Yes 12/03/24 09:21 VENDOR MANAGEMENT CONSULTANT.TNES Spontaneous unlabored Yes 12/03/24 09:21 VENDOR MANAGEMENT CONSULTANT.TNES respirations Mental status nausea No 12/03/24 09:21 VENDOR MANAGEMENT CONSULTANT.TNES Vomiting No 12/03/24 09:21 VENDOR MANAGEMENT CONSULTANT.TNES Anesthesia Postop Eval I: Fluid Summary Crystalloid volume administer 500 12/03/24 09:21 VENDOR MANAGEMENT CONSULTANT.TNES (ml) Colloids volume administered ( ml) Blood Product volume administered (ml) Total IV fluid infused 500 12/03/24 09:21 VENDOR MANAGEMENT CONSULTANT.TNES Anesthesia Postop Eval I: Summary Notes Anesthesia Complication No 12/03/24 09:21 VENDOR MANAGEMENT CONSULTANT.TNES Anesthesia Complication Comment: Post-operative progress note Anesthesia: Postop Eval II Evaluation Mental status: Awake Pain Level: 0 nausea: No Vomiting: No
--- NOTE | 2024-12-03 09:36 | PCM.POSTANE2 ---
Anesthesia Postop Eval I Sum Postop Eval Completion status Anesthesia document: Postop Eval 1 completed: Yes Anesthesia Postop Eval I Summary Anesthesia Postop Eval I Summary: Anesthesia Postop Eval I: Assessment Summary Airway patent Yes 12/03/24 09:21 PLANTING MACHINE OPERATOR.TNES Spontaneous unlabored Yes 12/03/24 09:21 PLANTING MACHINE OPERATOR.TNES respirations Mental status nausea No 12/03/24 09:21 PLANTING MACHINE OPERATOR.TNES Vomiting No 12/03/24 09:21 PLANTING MACHINE OPERATOR.TNES Anesthesia Postop Eval I: Fluid Summary Crystalloid volume administer 500 12/03/24 09:21 PLANTING MACHINE OPERATOR.TNES (ml) Colloids volume administered ( ml) Blood Product volume administered (ml) Total IV fluid infused 500 12/03/24 09:21 PLANTING MACHINE OPERATOR.TNES Anesthesia Postop Eval I: Summary Notes Anesthesia Complication No 12/03/24 09:21 PLANTING MACHINE OPERATOR.TNES Anesthesia Complication Comment: Post-operative progress note Anesthesia: Postop Eval II Evaluation Mental status: Awake Pain Level: 0 nausea: No Vomiting: No
== END 2024-12-03 10:21 | disposition home or self-care (01) ==
LOC: SDC 06:15 → AC 06:16
PROVIDERS: PCP Internal Medicine; Referring Provider Orthopaedic Surgery Sports Medicine; Visit Provider Orthopaedic Surgery Sports Medicine
PROC: (CPT 29848; principal; 2024-12-03 08:45)
DX: G56.02 Carpal tunnel syndrome, left upper limb (principal); I10 Essential (primary) hypertension; F32.A Depression, unspecified; F41.9 Anxiety disorder, unspecified; Z79.899 Other long term (current) drug therapy
CPT/HCPCS: 29848; 01810; A4216; J2405

== ENCOUNTER → 2025-09-08 | Outpatient (CLI) | payer MEDICARE, OTHER, SELFPAY ==
[2025-09-08 12:39] LABS: Hematocrit 38.6 % (37-47); Hemoglobin 12.5 g/dL (12.0-15.0); Immature Granulocytes Count 0.020 X10^3/uL (0.0-0.0); Mean Corp Hgb Conc 32.4 g/dL (32-36); Mean Corpuscular Volume 93.0 fL (81-99); Mean Platelet Vol. 10.0 fl (6.2-12.0); NRBC Flagged by Analyzer 0 % (0-5); Platelet Count 249 K/mm3 (150-450); RBC Distribution Width CV 14.0 % (11.6-14.6); RBC Distribution Width SD 47.8 fl (35.1-43.9); Red Blood Count 4.15 M/mm3 (4.2-5.4); White Blood Count 6.2 K/mm3 (4.4-11.0)
[2025-09-08 14:24] LABS: AST(SGOT) 16 U/L (<=31); Alanine Aminotransfer ALT/SGPT 18 U/L (<=34); Albumin, Serum 4.3 g/dL (3.4-4.8); Alkaline Phosphatase 72 U/L (35-104); Anion Gap 11 (5-15); BUN 20 mg/dL (4-19); BUN/Creat Ratio 25.1 RATIO (10-20); Calcium,Total 9.5 mg/dL (7.6-11.0); Carbon Dioxide 27.1 mmol/L (21.0-32.0); Chloride 104 mmol/L (98-108); Cholesterol 205 mg/dL (<=200); Globulin 2.6 g/dL (2.2-4.2); Glucose 99 mg/dL (70-99); Low Density Lipoprotein Calc. 124 mg/dL; Potassium 4.5 mmol/L (3.3-5.1); Triglycerides 115 mg/dL; Very Low Density Lipoprotein 23 mg/dL (5-40); Vitamin D,25 Hydroxy 50.1 ng/mL (30-100); cholesterol:hdl ratio screen 3.40
== END | disposition home or self-care (01) ==
PROVIDERS: PCP Internal Medicine; Referring Provider Internal Medicine; Visit Provider Internal Medicine
DX: I10 Essential (primary) hypertension (principal); E55.9 Vitamin D deficiency, unspecified; F32.A Depression, unspecified; M81.0 Age-related osteoporosis without current pathological fracture
CPT/HCPCS: 36415; 80053; 80061; 82306; 84443; 85025